=== PATIENT | female | born 1945 | race Caucasian/White ===

== ENCOUNTER 2016-11-29 19:25 | Emergency (ER) | payer MEDICARE, BC ==
[2016-11-29 20:10] VITALS: BP 143/91
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
--- NOTE | 2016-12-21 08:20 | EKG ---
11/29/2016- TRISTON GIRARD - This is a standard 12-lead EKG with a normal sinus rhythm, ventricular rate 80 beats per minute. Right bundle branch block. No significant ST-T changes. Premature ventricular beats, normal axis. [facility] /[id number]
== END 2016-11-29 23:11 | disposition home or self-care (01) ==
LOC: DL.ED 19:25
DX: M79.1 Myalgia (principal); I10 Essential (primary) hypertension; K21.9 Gastro-esophageal reflux disease without esophagitis; F32.9 Major depressive disorder, single episode, unspecified; Z88.0 Allergy status to penicillin; Z79.82 Long term (current) use of aspirin; Z79.899 Other long term (current) drug therapy
CPT/HCPCS: 87804; 93005; 93010; 99282; 99283

== ENCOUNTER 2016-12-08 14:42 | Observation (INO) | payer MEDICARE, BC ==
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
[2016-12-08 15:43] LABS: CHLORIDE,CL 103 mmol/L (101-111); SODIUM,NA 138 mmol/L (135-145)
[2016-12-08] MEDS ORDERED: Aspirin 81 MG Tab.Chew PO ONE (16:01)
[2016-12-08] MEDS ORDERED: Nitroglycerin 0.4 MG Tab.SL SL ONE (16:01)
--- NOTE | 2016-12-08 16:14 | CR ---
Clinical history: 71-year-old female chest pain. 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 Mild left ventriculomegaly but no associated cephalization of flow, signs of alveolar edema or depen dent effusion. No lung mass, hilar lymphadenopathy or focal lobar pneumonia. No pneumothorax. CONCLUSION: Mild cardiomegaly. No signs of heart failure or lobar pneumonia.
[2016-12-08] MEDS ORDERED: Sodium Chloride 0.9% 10 ML Syringe FLUSH PRN (16:47)
[2016-12-08] MEDS ORDERED: Ondansetron 4 MG Tab.DIS PO PRN (16:51)
[2016-12-08] MEDS ORDERED: Docusate Sodium 100 MG Cap PO PRN (16:51)
[2016-12-08] MEDS ORDERED: Zolpidem 5 MG Tab PO PRN (16:51)
[2016-12-08] MEDS ORDERED: Acetaminophen 325 MG Tab PO PRN (16:51)
[2016-12-08] MEDS ORDERED: oxyCODONE 5 MG Tab PO PRN (16:51)
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
[2016-12-08] MEDS: Sodium Chloride 0.9% 1,000 ML IV SCH (17:27)
[2016-12-08] MEDS ORDERED: Pantoprazole 40 MG Tab.CR PO SCH (17:30)
[2016-12-09] MEDS: Sodium Chloride 0.9% 1,000 ML IV SCH (03:29)
[2016-12-09] MEDS ORDERED: Sertraline 50 MG Tab PO SCH (09:00)
[2016-12-09] MEDS ORDERED: Enoxaparin 40 MG/0.4 ML Syringe SUBCUT SCH (09:00)
[2016-12-09] MEDS ORDERED: Lisinopril 10 MG Tab PO SCH (09:00)
[2016-12-09] MEDS ORDERED: Aspirin 81 MG Tab.EC PO SCH (09:00)
[2016-12-09] MEDS ORDERED: amLODIPine 5 MG Tab PO SCH (09:00)
--- NOTE | 2016-12-09 09:46 | PCM.DCSUM1 ---
Discharge Summary - Hospital Course Free Text/Narrative:: 71-year-old lady with cardiac risk factors of postmenopausal status, hypertension, obesity presented with nonspecific chest pain. the pain has been on and off, retrosternal, not associated shortness of breath, not associated with activity. She remained hemodynamically stable, in no distress. 1. chest pain The differential diagnosis is wide Includes possible acid reflux disease and, I will start the patient on protonix No apparent pulmonary disease other than elevated right hemidiaphragm, The patient has significant cardiac risk factors has right bundle branch block obesity hypertension, telemetry showed pAC, ekg: RBBB, negative troponins, will set up and outpatient stress test. treat the blood pressure follow lipid status as out pt continue aspirin. She has a history of fibromyalgia, use pain medication as needed. Musculoskeletal causes are less likley - non reproducible pain. 2. hypertension treat with lisinopril was uncontrolled on admission but the improved during the stay 3. Depression Continue Zoloft followup with primary care physician and stress test in [place] Return to the ER with further chest pain - Discharge Data Discharge Date: 12/09/16 Discharge Disposition: Home, Self-Care 01 Condition: Good - Discharge Diagnosis/Problem(s) (1) Chest pain SNOMED Code(s): 05822025 ICD Code: R07.9 - CHEST PAIN, UNSPECIFIED Status: Acute Current Visit: Yes (2) Hypertension SNOMED Code(s): 95315961 ICD Code: I10 - ESSENTIAL (PRIMARY) HYPERTENSION Status: Acute Current Visit: Yes (3) Anxiety SNOMED Code(s): 99364907 ICD Code: F41.9 - ANXIETY DISORDER, UNSPECIFIED Status: Acute Current Visit: Yes - Patient Instructions Diet: Heart Healthy Diet Activity: As Tolerated - Discharge Plan Prescriptions/Med Rec: Lansoprazole 15 mg PO DAILY #30 capsule. Home Medications: Home Meds Acetaminophen [Tylenol Extra Strength] 1,000 mg PO DAILY PRN 11/29/16 [History] Aspirin [Ecotrin] 81 mg PO DAILY 11/29/16 [History] Lisinopril 30 mg PO DAILY 11/29/16 [History] Sertraline [Zoloft] 100 mg PO DAILY 11/29/16 [History] amLODIPine [Norvasc] 5 mg PO DAILY 11/29/16 [History] Lansoprazole 15 mg PO DAILY #30 capsule. 12/09/16 [Rx] Referrals: PCP,Unobtain [Primary Care Provider] - (Mary Beth Rutledge in [place] - 2-3 days please set up a 2 day nuclear medicine stress test - non treadmill in [place] for Chest pain) - Discharge Summary/Plan Comment DC Time >30 min.: No - General Info Functional Status: Reports: pain controlled - Review of Systems General: Denies: fever Pulmonary: Denies: shortness of breath Cardiovascular: Reports: chest pain (mild discomfort that she did not feel that needs to pain medication). Denies: palpitations, edema 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: Denies: Abdominal pain Neurological: Denies: confusion - Patient Data Vitals - Most Recent: Last Vital Signs Temp 36.8 C 12/09/16 07:46 Pulse 58 L 12/09/16 07:46 Resp 20 12/09/16 07:46 BP 130/69 12/09/16 09:42 Pulse Ox 97 12/09/16 07:46 Weight - Most Recent: 93.712 kg I&O - Last 24 hours: Intake & Output 12/08/16 12/09/16 12/09/16 22:59 06:59 14:59 Intake Total 200 250 Output Total 1400 260 Balance -1200 -10 Lab Results - Last 24 hrs: Laboratory Results - last 24 hr 12/08/16 12/09/16 Range/Units 23:30 06:37 Troponin I 0.02 0.02 (0.00-0.02) ng/ml Med Orders - Current: Current Medications Acetaminophen (Tylenol) 650 mg PO Q4H PRN PRN Reason: Pain (Mild 1-3)/fever Last Admin: 12/09/16 03:12 Dose: 650 mg Amlodipine Besylate (Norvasc) 5 mg PO DAILY [facility] Last Admin: 12/09/16 09:42 Dose: 5 mg Aspirin (Halfprin) 81 mg PO DAILY [facility] Last Admin: 12/09/16 09:42 Dose: 81 mg Docusate Sodium (Colace) 100 mg PO BID PRN PRN Reason: Constipation Enoxaparin Sodium (Lovenox) 40 mg SUBCUT DAILY [facility] Last Admin: 12/09/16 09:43 Dose: 40 mg Sodium Chloride (Normal Saline) 1,000 mls @ 100 mls/hr IV ASDIRECTED [facility] Last Admin: 12/09/16 03:29 Dose: 100 mls/hr Lisinopril (Prinivil) 30 mg PO DAILY [facility] Last Admin: 12/09/16 09:41 Dose: 30 mg Ondansetron HCl (Zofran Odt) 4 mg PO Q6H PRN PRN Reason: nausea, able to take PO Oxycodone HCl (Oxycodone) 5 mg PO Q4H PRN PRN Reason: Pain (moderate 4-6) Pantoprazole Sodium (Protonix) 40 mg PO BEDTIME [facility] Last Admin: 12/08/16 20:02 Dose: 40 mg Sertraline HCl (Zoloft) 100 mg PO DAILY [facility] Last Admin: 12/09/16 09:42 Dose: 100 mg Sodium Chloride (Saline Flush) 10 ml FLUSH ASDIRECTED PRN PRN Reason: Keep Vein Open Zolpidem Tartrate (Ambien) 5 mg PO BEDTIME PRN PRN Reason: Sleep Discontinued Medications Aspirin (Aspirin) 243 mg PO ONETIME ONE Stop: 12/08/16 16:02 Last Admin: 12/08/16 16:25 Dose: 243 mg Nitroglycerin (Nitrostat) 0.4 mg SL ONETIME ONE Stop: 12/08/16 16:02 Last Admin: 12/08/16 16:25 Dose: 0.4 mg - Exam General: Reports: alert, oriented Neck: Reports: supple Lungs: Reports: Clear to auscultation, Normal respiratory effort Cardiovascular: Reports: regular rate, regular rhythm Abdomen: Reports: bowel sounds present, soft, no tenderness, other (obese) Extremities: Reports: no edema *Q Meaningful Use (DIS) - VTE *Q VTE Criteria *Q: - Stroke *Q Stroke Criteria *Q: - AMI *Q AMI Criteria *Q:
[2016-12-09 12:09] VITALS: BP 130/69
--- NOTE | 2016-12-10 07:24 | EKG ---
12/08/2016- TRISTNO IGRARD - EKG per my reading, shows sinus rhythm, with right bundle-branch block with PACs. [facility] /[id number]
== END 2016-12-09 12:19 | disposition home or self-care (01) ==
LOC: DL.ED 14:42 → DL.MS 16:32 → UNDOADMOB 16:32 → DL.ED 16:33 → DL.MS 16:47
PROVIDERS: ADMIT Internal Medicine; ATTEND Internal Medicine
DX: R07.9 Chest pain, unspecified (principal); Z78.0 Asymptomatic menopausal state; I10 Essential (primary) hypertension; E66.9 Obesity, unspecified; I45.10 Unspecified right bundle-branch block; M79.7 Fibromyalgia; F41.9 Anxiety disorder, unspecified; Z79.82 Long term (current) use of aspirin; Z79.899 Other long term (current) drug therapy; Z88.0 Allergy status to penicillin; K21.9 Gastro-esophageal reflux disease without esophagitis; F32.9 Major depressive disorder, single episode, unspecified
CPT/HCPCS: 36415; 71020; 80053; 81001; 82150; 82550; 82553; 83690; 84484; 85025; 93005; 93010; 96360; 96361; 96372; 99285; A9270; G0378; J1650; J7030; 99217; 99284

== ENCOUNTER 2017-10-28 14:43 | Emergency (ER) | payer MEDICARE, BC ==
[2017-10-28] MEDS ORDERED: Aspirin 81 MG Tab.Chew PO ONE (14:56)
[2017-10-28] MEDS ORDERED: Nitroglycerin 0.4 MG Tab.SL SL ONE (14:56)
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
--- NOTE | 2017-10-28 15:25 | CR ---
Clinical history: 72-year-old female chest pain. Interpretation: No acute new cardiopulmonary abnormality data finding the interval since 08 December 2016 exam. Mild ectasia of the aorta. Normal cardiac silhouette. No cephalization of flow, signs of alveolar lorna ma or dependent pleural effusion. No new lung mass, hilar lymphadenopathy or focal lobar pneumonia. No pneumothorax.
[2017-10-28 15:32] LABS: ANION GAP 14.4; CHLORIDE,CL 104 mmol/L (101-111); SODIUM,NA 138 mmol/L (135-145)
[2017-10-28 20:51] VITALS: BP 150/84
--- NOTE | 2017-11-01 08:54 | EKG ---
10/28/2017 - TRISTON GIRARD - TIME: 1900 hours EKG is sinus rhythm with a rate of 79, normal [place] interval. There is a right bundle-branch block. There is a left axis deviation, and there are Q-waves on the inferior leads. IMPRESSION: Abnormal EKG as noted above. [facility] /[id number]
--- NOTE | 2017-11-01 08:54 | EKG ---
10/28/2017 - TRISTON GIRARD - TIME: 1450 hours. EKG is sinus rhythm with a rate of 76, normal [place] interval. There is a left axis deviation. There is a right bundle-branch block. There are Q-waves on the inferior leads and occasional PVC. [facility] /[id number]
--- NOTE | 2017-11-01 08:54 | EKG ---
10/28/2017 - TRISTON GIRARD - TIME: 1450 hours EKG is sinus rhythm with a rate of 76, normal CT interval. There is a left axis deviation. There is occasional PVC. There is right bundle-branch block and Q- waves on the inferior leads. IMPRESSION: Abnormal EKG as noted above. [facility] /[id number]
--- NOTE | 2017-11-01 08:57 | EKG ---
10/28/2017 - TRISTON GIRARD - EKG is sinus rhythm with a rate of 79. There is a normal [place] interval. There are Q-waves on the inferior leads and T-wave inversion on the septal leads. There is a right bundle-branch block. IMPRESSION: Abnormal EKG as noted above. [facility] /[id number]
== END 2017-10-28 20:52 | disposition home or self-care (01) ==
LOC: DL.ED 14:43 → DL.MS 17:06 → DL.ED 20:52
DX: R07.9 Chest pain, unspecified (principal); F41.9 Anxiety disorder, unspecified; I10 Essential (primary) hypertension; K21.9 Gastro-esophageal reflux disease without esophagitis; Z79.82 Long term (current) use of aspirin; Z79.899 Other long term (current) drug therapy; Z88.0 Allergy status to penicillin
CPT/HCPCS: 36415; 71045; 80053; 84484; 85025; 93005; 99285; A9270; 93010; 99283

== ENCOUNTER 2018-02-02 15:51 | Inpatient (IN) | payer MEDICARE, BC ==
[2018-02-04] MEDS ORDERED: Acetaminophen/HYDROcodone 325-10 MG Tab PO PRN (13:54)
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
[2018-02-04] MEDS ORDERED: Docusate Sodium 100 MG Cap PO PRN (13:56)
[2018-02-04] MEDS ORDERED: Ondansetron 4 MG/2 ML SDV IVPUSH PRN (13:56)
[2018-02-04] MEDS ORDERED: Ondansetron 4 MG Tab.DIS PO PRN (13:56)
[2018-02-04] MEDS: Dexamethasone 4 MG Tab PO SCH ×2 (17:18→20:46)
[2018-02-05] MEDS ORDERED: LORazepam 0.5 MG Tab PO ONE (01:11)
[2018-02-05] MEDS: Cholecalciferol (Vitamin D3) 400 Unit Tab PO SCH (09:04)
[2018-02-05] MEDS: Enoxaparin 40 MG/0.4 ML Syringe SUBCUT SCH (09:04)
[2018-02-05] MEDS: Dexamethasone 4 MG Tab PO SCH (09:04)
[2018-02-05] MEDS: amLODIPine 5 MG Tab PO SCH (09:05)
[2018-02-05] MEDS: Lisinopril 10 MG Tab PO SCH (09:05)
[2018-02-05] MEDS: Sertraline 50 MG Tab PO SCH (09:05)
[2018-02-05] MEDS: Aspirin 81 MG Tab.EC PO SCH (09:05)
[2018-02-05] MEDS: Multivitamins, Therapeutic with Minerals Tab PO SCH (09:05)
--- NOTE | 2018-02-05 11:18 | PCM.SN ---
- Free Text/Narrative Note: restless and confused, hallucination last night will try to cut back steroid minimize narc pain meds use olanzapine if needed
[2018-02-05] MEDS: NABUMETONE 750 MG PO SCH (11:38)
[2018-02-05] MEDS: OLANZapine 5 MG Tab PO PRN ×2 (12:06→20:03)
[2018-02-05] MEDS: Zolpidem 5 MG Tab PO PRN (20:03)
[2018-02-06] MEDS: Multivitamins, Therapeutic with Minerals Tab PO SCH (09:51)
[2018-02-06] MEDS: Enoxaparin 40 MG/0.4 ML Syringe SUBCUT SCH (09:51)
[2018-02-06] MEDS: Aspirin 81 MG Tab.EC PO SCH (09:51)
[2018-02-06] MEDS: Dexamethasone 4 MG Tab PO SCH (09:52)
[2018-02-06] MEDS: Cholecalciferol (Vitamin D3) 400 Unit Tab PO SCH (09:52)
[2018-02-06] MEDS: Sertraline 50 MG Tab PO SCH (09:52)
[2018-02-06] MEDS: Lisinopril 10 MG Tab PO SCH (09:54)
[2018-02-06] MEDS: amLODIPine 5 MG Tab PO SCH (09:54)
[2018-02-06] MEDS: Acetaminophen 325 MG Tab PO PRN ×2 (12:25→21:27)
[2018-02-06] MEDS: Zolpidem 5 MG Tab PO PRN (21:27)
[2018-02-07] MEDS: Acetaminophen 325 MG Tab PO PRN ×2 (05:04→13:09)
[2018-02-07 06:43] LABS: CHLORIDE,CL 103 mmol/L (101-111); SODIUM,NA 139 mmol/L (135-145)
--- NOTE | 2018-02-07 09:36 | PCM.PN ---
- General Info Date of Service: 02/07/18 Admission Dx/Problem (Free Text): Admission Diagnosis/Problem Admission Diagnosis/Problem weakness Functional Status: Reports: Pain Controlled - Review of Systems General: Denies: Fever Pulmonary: Denies: Shortness of Breath Cardiovascular: Denies: Chest Pain Neurological: Reports: Confusion (The patient was confused over the weekend but gradually improved. Resolved.) - Patient Data Vitals - Most Recent: Last Vital Signs Temp 36.9 C 02/07/18 08:29 Pulse 80 02/07/18 08:29 Resp 20 02/07/18 08:29 BP 134/73 02/07/18 08:29 Pulse Ox 98 02/07/18 08:29 Weight - Most Recent: 96.887 kg I&O - Last 24 Hours: Intake & Output 02/06/18 02/07/18 02/07/18 22:59 06:59 14:59 Intake Total 590 125 Output Total 500 700 300 Balance 90 -575 -300 Lab Results Last 24 Hours: Laboratory Results - last 24 hr 02/07/18 02/07/18 Range/Units 05:30 05:30 WBC 8.8 (5.0-10.0) 10^3/uL RBC 3.50 L (4.2-5.4) 10^6/uL Hgb 10.9 L D (12.0-16.0) g/dL Hct 33.7 L (37.0-47.0) % MCV 96.3 (80-100) fL MCH 31.1 (27.0-34.0) pg MCHC 32.3 L (33.0-35.0) g/dL Plt Count 312 D (150-450) 10^3/uL Neut % (Auto) 61.9 (42.2-75.2) % Lymph % (Auto) 26.8 (20.5-50.1) % Bee % (Auto) 11.0 H (2-8) % Eos % (Auto) 0.2 L (1.0-3.0) % Baso % (Auto) 0.1 (0.0-1.0) % Sodium 139 (135-145) mmol/L Potassium 3.7 (3.6-5.0) mmol/L Chloride 103 (101-111) mmol/L Carbon Dioxide 28.0 (21.0-31.0) mmol/L Anion Gap 11.7 BUN 23 H (7-18) mg/dL Creatinine 0.7 (0.6-1.3) mg/dL Est Cr Clr Drug Dosing 53.21 mL/min Estimated GFR (MDRD) > 60 Glucose 93 (74-105) mg/dL Calcium 9.3 (8.4-10.2) mg/dl Med Orders - Current: Current Medications Acetaminophen (Tylenol) 650 mg PO Q8HR PRN PRN Reason: Pain Last Admin: 02/07/18 05:04 Dose: 650 mg Hydrocodone Bitart/Acetaminophen ([place] 325-10 Mg) 1 tab PO Q6HR PRN PRN Reason: moderate to severe Pain Last Admin: 02/04/18 15:44 Dose: 1 tab Amlodipine Besylate (Norvasc) 5 mg PO DAILY [facility] Last Admin: 02/06/18 09:54 Dose: 5 mg Aspirin (Halfprin) 81 mg PO DAILY [facility] Last Admin: 02/06/18 09:51 Dose: 81 mg Cholecalciferol (Vitamin D3) 1,000 units PO DAILY [facility] Last Admin: 02/06/18 09:52 Dose: 1,000 units Docusate Sodium (Colace) 100 mg PO BID PRN PRN Reason: Constipation Enoxaparin Sodium (Lovenox) 40 mg SUBCUT DAILY [facility] Last Admin: 02/06/18 09:51 Dose: 40 mg Lisinopril (Prinivil) 30 mg PO DAILY [facility] Last Admin: 02/06/18 09:54 Dose: 30 mg Multivitamins/Minerals (Vitamins And Minerals) 1 tab PO DAILY [facility] Last Admin: 02/06/18 09:51 Dose: 1 tab Olanzapine (Zyprexa) 5 mg PO BID PRN PRN Reason: agitation, confusion Last Admin: 02/05/18 20:03 Dose: 5 mg Ondansetron HCl (Zofran) 4 mg IVPUSH Q6H PRN PRN Reason: Nausea/Vomiting Ondansetron HCl (Zofran Odt) 4 mg PO Q6H PRN PRN Reason: nausea, able to take PO Senna/Docusate Sodium (Senna Plus) 1 tab PO BID [facility] Last Admin: 02/06/18 21:27 Dose: 1 tab Sertraline HCl (Zoloft) 100 mg PO DAILY [facility] Last Admin: 02/06/18 09:52 Dose: 100 mg Zolpidem Tartrate (Ambien) 5 mg PO BEDTIME PRN PRN Reason: Sleep Last Admin: 02/06/18 21:27 Dose: 5 mg Discontinued Medications Dexamethasone (Dexamethasone) 4 mg PO QID [facility] Stop: 02/06/18 13:01 Last Admin: 02/05/18 09:04 Dose: 4 mg Dexamethasone (Dexamethasone) 4 mg PO DAILY [facility] Stop: 02/07/18 09:01 Last Admin: 02/06/18 09:52 Dose: 4 mg Lorazepam (Ativan) 0.5 mg PO ONETIME ONE Stop: 02/05/18 01:12 Last Admin: 02/05/18 01:19 Dose: 0.5 mg Non-Formulary Medication (Nabumetone [Relafen]) 750 mg PO BID [facility] Last Admin: 02/05/18 11:38 Dose: Not Given - Exam General: Alert, Oriented Neck: Supple Lungs: Clear to Auscultation, Normal Respiratory Effort Cardiovascular: Regular Rate, Regular Rhythm GI/Abdominal Exam: Normal Bowel Sounds, Soft, Non-Tender Extremities: No Pedal Edema - Problem List & Annotations (1) Status post lumbar spine surgery for decompression of spinal cord SNOMED Code(s): 761382400, 899637445 Code(s): Z98.890 - OTHER SPECIFIED POSTPROCEDURAL STATES Status: Acute Current Visit: Yes (2) Hypertension SNOMED Code(s): 42098246 Code(s): I10 - ESSENTIAL (PRIMARY) HYPERTENSION Status: Acute Current Visit: No - Problem List Review Problem List Initiated/Reviewed/Updated: Yes - My Orders Last 24 Hours: My Active Orders 02/06/18 14:15 Docusate Sodium/Sennosides [Senna Plus] 1 tab PO BID - Plan Plan:: The patient is a 72-year-old lady who has a history of hypertension, gastroesophageal reflux disease, fibromyalgia. The patient was in acute care hospital and underwent an L3 to L5 lumbar decompression and fusion surgery Subsequently the patient was felt to be weak and requiring further physical and occupational therapy and was transferred to swing bed. Hypertension Controlled Treat with Norvasc, lisinopril Continue aspirin Lumbar decompression surgery Continue with Physical and occupational therapy Finished Dexamethasone treatment Pain control with lorcet Gastroesophageal reflux disease Treat with Protonix History of depression and fibromyalgia Zoloft Acute encephalopathy Likely due to steroids Resolved DVT prophylaxis will be with ZAHRA alonzo and Francois Will have follow-up with Dr. Fajardo about 4 weeks following the surgery
[2018-02-07] MEDS: Multivitamins, Therapeutic with Minerals Tab PO SCH (10:01)
[2018-02-07] MEDS: Enoxaparin 40 MG/0.4 ML Syringe SUBCUT SCH (10:02)
[2018-02-07] MEDS: Aspirin 81 MG Tab.EC PO SCH (10:02)
[2018-02-07] MEDS: Dexamethasone 4 MG Tab PO SCH (10:02)
[2018-02-07] MEDS: Sertraline 50 MG Tab PO SCH (10:03)
[2018-02-07] MEDS: amLODIPine 5 MG Tab PO SCH (10:03)
[2018-02-07] MEDS: Lisinopril 10 MG Tab PO SCH (10:04)
[2018-02-07] MEDS: Cholecalciferol (Vitamin D3) 400 Unit Tab PO SCH (10:04)
[2018-02-08] MEDS: Acetaminophen 325 MG Tab PO PRN ×3 (09:33→21:32)
[2018-02-08] MEDS: Aspirin 81 MG Tab.EC PO SCH (09:37)
[2018-02-08] MEDS: Enoxaparin 40 MG/0.4 ML Syringe SUBCUT SCH (09:37)
[2018-02-08] MEDS: Multivitamins, Therapeutic with Minerals Tab PO SCH (09:38)
[2018-02-08] MEDS: Sertraline 50 MG Tab PO SCH (09:39)
[2018-02-08] MEDS: Cholecalciferol (Vitamin D3) 400 Unit Tab PO SCH (09:39)
[2018-02-08] MEDS: Lisinopril 10 MG Tab PO SCH (09:42)
[2018-02-08] MEDS: amLODIPine 5 MG Tab PO SCH (09:43)
[2018-02-09] MEDS: Pantoprazole 40 MG Tab.CR PO SCH (05:19)
[2018-02-09] MEDS: Acetaminophen 325 MG Tab PO PRN ×3 (05:22→17:59)
[2018-02-09] MEDS: Cholecalciferol (Vitamin D3) 400 Unit Tab PO SCH (08:52)
[2018-02-09] MEDS: amLODIPine 5 MG Tab PO SCH (08:53)
[2018-02-09] MEDS: Multivitamins, Therapeutic with Minerals Tab PO SCH (08:53)
[2018-02-09] MEDS: Lisinopril 10 MG Tab PO SCH (08:54)
[2018-02-09] MEDS: Sertraline 50 MG Tab PO SCH (08:54)
[2018-02-09] MEDS: Aspirin 81 MG Tab.EC PO SCH (08:54)
[2018-02-09] MEDS: Enoxaparin 40 MG/0.4 ML Syringe SUBCUT SCH (08:55)
[2018-02-09] MEDS ORDERED: Lactulose Soln 10 GM/15 ML 30 ML UD Cup PO PRN (13:41)
[2018-02-10] MEDS: Acetaminophen 325 MG Tab PO PRN ×4 (00:01→22:18)
[2018-02-10] MEDS: Pantoprazole 40 MG Tab.CR PO SCH (06:18)
[2018-02-10] MEDS: Lisinopril 10 MG Tab PO SCH (08:49)
[2018-02-10] MEDS: Multivitamins, Therapeutic with Minerals Tab PO SCH (08:50)
[2018-02-10] MEDS: Cholecalciferol (Vitamin D3) 400 Unit Tab PO SCH (08:51)
[2018-02-10] MEDS: Aspirin 81 MG Tab.EC PO SCH (08:51)
[2018-02-10] MEDS: Sertraline 50 MG Tab PO SCH (08:52)
[2018-02-10] MEDS: amLODIPine 5 MG Tab PO SCH (08:52)
[2018-02-10] MEDS: Enoxaparin 40 MG/0.4 ML Syringe SUBCUT SCH (08:53)
[2018-02-11] MEDS: Pantoprazole 40 MG Tab.CR PO SCH (06:13)
[2018-02-11] MEDS: Acetaminophen 325 MG Tab PO PRN ×2 (06:23→13:33)
[2018-02-11 08:03] VITALS: BP 114/68
[2018-02-11] MEDS: Multivitamins, Therapeutic with Minerals Tab PO SCH (09:09)
[2018-02-11] MEDS: Aspirin 81 MG Tab.EC PO SCH (09:09)
[2018-02-11] MEDS: Sertraline 50 MG Tab PO SCH (09:10)
[2018-02-11] MEDS: Cholecalciferol (Vitamin D3) 400 Unit Tab PO SCH (09:10)
[2018-02-11] MEDS: Lisinopril 10 MG Tab PO SCH (09:13)
[2018-02-11] MEDS: amLODIPine 5 MG Tab PO SCH (09:13)
[2018-02-11] MEDS: Enoxaparin 40 MG/0.4 ML Syringe SUBCUT SCH (09:14)
--- NOTE | 2018-02-11 14:07 | DISCH ---
DATE OF SERVICE: 02/11/2018 ADMITTING DIAGNOSES: Generalized weakness and debility, secondary to recent back surgery. DISCHARGE DIAGNOSES: 1. Generalized debility and weakness, improved. 2. The patient will need help of walker to ambulate and to prevent falls. 3. Status post L3-L5 lumbar decompression and fusion surgery without any complications. 4. Hypertension. 5. Gastroesophageal reflux disease. 6. Fibromyalgia. HISTORY OF PRESENT ILLNESS: Mrs. Sheryl Schwazr is a 72-year-old female with a medical history significant for hypertension, hyperlipidemia, gastroesophageal reflux disease, has been suffering with back pain and recently underwent lumbar spine surgery for decompression and fusion surgery from L3-L5. Postsurgery, the patient was feeling weak and tired and required further physical therapy and occupational therapy. The patient was admitted to the Swing Bed. She responded well to the treatment. She denies any ongoing pains at this time. She is able to ambulate with the help of the walker, and she will need a walker prescription to go home with to help with ambulation and to prevent falls. She is discharged home in stable condition. She is advised to follow with the primary care physician in the next 1 week of time and to follow with [facility] as scheduled. DISCHARGE MEDICATIONS: Discharge medications include: 1. Acetaminophen 650 mg every 8 hours as needed for pain. 2. Aspirin 81 mg daily. 3. Vitamin D3 1000 units daily. 4. Lisinopril 30 mg daily. 5. Loratadine 10 mg daily as needed. 6. Relafen 750 mg twice a day. 7. Multivitamin 1 tablet 1 daily. 8. Omeprazole 20 mg daily. 9. Zoloft 100 mg daily. 10.Norvasc 5 mg daily. PHYSICAL EXAMINATION: On the day of discharge: Vital Signs: Temperature of 97.9, pulse of 71, blood pressure 114/68, respiratory rate of 16, and saturating at 97% on room air. General Appearance: The patient is well oriented to time, place, and person. Follows commands spontaneously. Cardiovascular System: S1, S2 heard with normal intensity. No gallops. Respiratory System: Clear to auscultation bilaterally. No wheeze. No crepitations. Abdomen: Soft. Bowel sounds positive. Nontender. No rigidity. Extremities: No edema in bilateral lower extremities. Neurology: No gross focal neurological deficits. CONDITION ON ADMISSION: Poor. CONDITION ON DISCHARGE: Stable. DISPOSITION: Discharged to home. ACTIVITY: As tolerated. DIET: Cardiac healthy diet. FOLLOWUP: Follow up with primary care physician in the next 1 week of time, and follow up with neurosurgery clinic as scheduled. TIME SPENT: Spent over 35 minutes of time in evaluating and treating this patient and making discharge plans. [facility] /[id number]
== END 2018-02-11 14:20 | disposition home or self-care (01) | DRG 559 ==
LOC: UNDOADMIN 02-04 12:51 → DL.MS 02-04 12:51
PROVIDERS: ADMIT Internal Medicine; ATTEND Internal Medicine
DX: Z47.89 Encounter for other orthopedic aftercare (principal); G92 Toxic encephalopathy; T38.0X5A Adverse effect of glucocorticoids and synthetic analogues, initial encounter; Z98.1 Arthrodesis status; R53.1 Weakness; R53.81 Other malaise; I10 Essential (primary) hypertension; K21.9 Gastro-esophageal reflux disease without esophagitis; M79.7 Fibromyalgia; E78.5 Hyperlipidemia, unspecified; H54.7 Unspecified visual loss; G89.29 Other chronic pain; M54.2 Cervicalgia; F32.9 Major depressive disorder, single episode, unspecified; R11.0 Nausea; Z88.0 Allergy status to penicillin; Z79.82 Long term (current) use of aspirin; Z79.899 Other long term (current) drug therapy
CPT/HCPCS: 36415; 80048; 81001; 85025; 97110-GO; 97110-GP; 97116-GP; 97162-GP; 97165-GO; 97530-GO; A9270-GY; J1650; J8540

== ENCOUNTER 2024-02-09 09:37 | Day surgery (SDC) | payer MEDICARE, OTHER ==
[2024-02-09] MEDS ORDERED: Midazolam 1 MG/ML 2 ML SDV IV ONE (09:38)
[2024-02-09] MEDS ORDERED: Sodium Chloride 0.9% 10 ML Syringe IV ONE (09:38)
[2024-02-09] MEDS ORDERED: Dexamethasone 4 MG/ML SDV IV ONE (09:38)
[2024-02-09] MEDS ORDERED: Acetaminophen/Codeine 300-30 MG Tab PO PRN (09:45)
[2024-02-09] MEDS ORDERED: Ondansetron 4 MG/2 ML SDV IVPUSH PRN (09:45)
[2024-02-09] MEDS ORDERED: Acetaminophen 325 MG Tab PO PRN (09:45)
[2024-02-09] MEDS: Sodium Chloride 0.9% 10 ML Syringe FLUSH PRN (10:03)
[2024-02-09] MEDS: Timolol Maleate 0.5% Ophth Soln 5 ML Bottle EYELF ONE (10:04)
[2024-02-09] MEDS: Proparacaine 0.5% Ophth Soln 15 ML Bottle EYELF ONE ×2 (10:04→11:12)
[2024-02-09] MEDS: Moxifloxacin 0.5% Ophth Soln 3 ML Bottle EYELF ONE (10:04)
[2024-02-09] MEDS: Phenylephrine 10% Ophth Soln 5 ML Bot EYELF ONE (10:04)
[2024-02-09] MEDS: Tropicamide 1% Ophth Soln 15 ML Bottle EYELF ONE (10:05)
[2024-02-09] MEDS: Povidone-Iodine 5% Sterile Ophth Soln 30 ML Bottle EYELF ONE ×2 (10:05→11:12)
[2024-02-09] MEDS: Cataract Ophth Solution EYELF ONE (10:05)
[2024-02-09] MEDS: Lidocaine 1% 30 ML SDV ONE (11:12)
[2024-02-09] MEDS: Apraclonidine 0.5% Ophth Soln 5 ML Bot EYELF ONE (11:12)
[2024-02-09] MEDS: Diclofenac Sodium 0.1% Ophth Soln 5 ML Bottle EYELF ONE (11:12)
[2024-02-09] MEDS: Dexamethasone/Neomycin/Polymyxin B Ophth Oint 3.5 GM Tube EYELF ONE (11:13)
[2024-02-09] MEDS: Vancomycin 500 MG SDV EYELF ONE (11:13)
[2024-02-09 12:06] VITALS: BP 136/67; PULSE 60
== END 2024-02-09 12:00 | disposition home or self-care (01) ==
LOC: DL.SDS 09:37
PROVIDERS: ATTEND Ophthalmology
DX: H25.812 Combined forms of age-related cataract, left eye (principal); I10 Essential (primary) hypertension; E78.00 Pure hypercholesterolemia, unspecified; F41.9 Anxiety disorder, unspecified; K21.9 Gastro-esophageal reflux disease without esophagitis; Z79.899 Other long term (current) drug therapy; Z88.0 Allergy status to penicillin; Z88.5 Allergy status to narcotic agent
CPT/HCPCS: A9270-GY; J1100; J2250; J3370; J3490

== ENCOUNTER 2024-02-23 07:17 | Day surgery (SDC) | payer MEDICARE, OTHER ==
[2024-02-23] MEDS ORDERED: Sodium Chloride 0.9% 10 ML Syringe FLUSH PRN (07:30)
[2024-02-23] MEDS ORDERED: Ondansetron 4 MG/2 ML SDV IVPUSH PRN (07:30)
[2024-02-23] MEDS ORDERED: Acetaminophen/Codeine 300-30 MG Tab PO PRN (07:30)
[2024-02-23] MEDS ORDERED: Acetaminophen 325 MG Tab PO PRN (07:30)
[2024-02-23] MEDS: Timolol Maleate 0.5% Ophth Soln 5 ML Bottle EYERT ONE (07:43)
[2024-02-23] MEDS: Phenylephrine 10% Ophth Soln 5 ML Bot EYERT ONE (07:44)
[2024-02-23] MEDS: Moxifloxacin 0.5% Ophth Soln 3 ML Bottle EYERT ONE (07:44)
[2024-02-23] MEDS: Tropicamide 1% Ophth Soln 15 ML Bottle EYERT ONE (07:44)
[2024-02-23] MEDS: Cataract Ophth Solution EYERT ONE (07:45)
[2024-02-23] MEDS: Proparacaine 0.5% Ophth Soln 15 ML Bottle EYERT ONE ×2 (07:45→08:49)
[2024-02-23] MEDS: Povidone-Iodine 5% Sterile Ophth Soln 30 ML Bottle EYERT ONE ×2 (07:46→08:50)
[2024-02-23] MEDS: Lidocaine 1% 30 ML SDV ONE (08:49)
[2024-02-23] MEDS: Diclofenac Sodium 0.1% Ophth Soln 5 ML Bottle EYERT ONE (08:50)
[2024-02-23] MEDS: Apraclonidine 0.5% Ophth Soln 5 ML Bot EYERT ONE (08:50)
[2024-02-23] MEDS: Dexamethasone/Neomycin/Polymyxin B Ophth Oint 3.5 GM Tube EYERT ONE (08:50)
[2024-02-23] MEDS: Vancomycin 500 MG SDV EYERT ONE (08:50)
[2024-02-23] MEDS: Dexamethasone 4 MG/ML SDV IOCULAR ONE (08:52)
[2024-02-23 12:16] VITALS: BP 138/80; PULSE 59
== END 2024-02-23 09:40 | disposition home or self-care (01) ==
LOC: DL.SDS 07:17
PROVIDERS: ATTEND Ophthalmology
DX: H25.811 Combined forms of age-related cataract, right eye (principal); I10 Essential (primary) hypertension; K21.9 Gastro-esophageal reflux disease without esophagitis; F41.9 Anxiety disorder, unspecified; E78.00 Pure hypercholesterolemia, unspecified; Z79.899 Other long term (current) drug therapy
CPT/HCPCS: A9270-GY; J1100; J3370; J3490; V2787-GY

== ENCOUNTER 2024-03-19 10:02 | Emergency (ER) | payer MEDICARE, OTHER ==
[2024-03-19 11:04] LABS: BASOPHILS PERCENT AUTO 0.3 % (0.0-1.0); EOSINOPHILS PERCENT AUTO 2.5 % (1.0-3.0); HEMATOCRIT 39.7 % (37.0-47.0); HEMOGLOBIN 13.1 g/dL (12.0-16.0); LYMPHOCYTES PERCENT AUTO 13.3 % (20.5-50.1); MEAN CORPUSCULAR HEMOGLOBIN 33.1 pg (27.0-34.0); MEAN CORPUSCULAR VOLUME 100.3 fL (80-100); MONOCYTES PERCENT AUTO 12.2 % (2-8); NEUTROPHILS PERCENT AUTO 71.7 % (42.2-75.2); PLATELET COUNT,PLT 278 10^3/uL (150-450); RED BLOOD CELL COUNT 3.96 10^6/uL (4.2-5.4); WHITE BLOOD CELL COUNT,WBC 8.7 10^3/uL (5.0-10.0)
[2024-03-19 11:13] LABS: A/G RATIO 0.9; ALBUMIN 3.4 g/dL (3.4-5.0); ANION GAP 17.2 mEq/L (7-13); BILIRUBIN TOTAL 1.4 mg/dL (0.2-1.0); BUN/CREATININE RATIO 16.7 (No establ ref range); CALCIUM 9.6 mg/dL (8.5-10.1); CREATININE 1.2 mg/dL (0.55-1.02); EST CRCL DRUG DOSING (CG) 30.93 mL/min; MAGNESIUM 1.5 mg/dL (1.8-2.4); POTASSIUM,K 4.2 mmol/L (3.5-5.1)
[2024-03-19] MEDS: Sodium Chloride 0.9% 1,000 ML IV ONE (11:16)
[2024-03-19] MEDS ORDERED: Orphenadrine 60 MG/2 ML Inj IV ONE (12:45)
[2024-03-19] MEDS: Magnesium Sulfate/Water 2 GM in Premix Bag 1 BAG IV ONE (12:52)
[2024-03-19] MEDS: Orphenadrine 60 MG/2 ML Inj IM ONE (13:05)
[2024-03-19 13:32] VITALS: BP 112/61; PULSE 79
== END 2024-03-19 13:43 | disposition home or self-care (01) ==
LOC: DL.ED 10:02
DX: M54.30 Sciatica, unspecified side (principal); N17.9 Acute kidney failure, unspecified; E83.42 Hypomagnesemia; E86.0 Dehydration; I11.0 Hypertensive heart disease with heart failure; K21.9 Gastro-esophageal reflux disease without esophagitis; I50.9 Heart failure, unspecified; Z88.0 Allergy status to penicillin; Z88.8 Allergy status to other drugs, medicaments and biological substances; Z79.899 Other long term (current) drug therapy; Z86.16 Personal history of COVID-19
CPT/HCPCS: 36415; 72125; 80053; 83735; 85025; 93005; 93010; 96361; 96365; 96372; 99284; J2360; J3475; J7030